=== PATIENT | male | born 1975 | race Caucasian/White ===

== ENCOUNTER 2020-01-14 07:28 | Emergency (ER) | payer OTHER ==
[2020-01-14 08:12] LABS: ABSOLUTE BASOPHILS # (AUTO) 0.1 10^3/uL (0.0-0.2); ABSOLUTE EOSINOPHILS # (AUTO) 0.2 10^3/uL (0.0-0.6); ABSOLUTE LYMPHOCYTES (AUTO) 3.5 10^3/uL (0.5-4.7); ABSOLUTE MONOCYTES (AUTO) 0.7 10^3/uL (0.1-1.4); ABSOLUTE NEUT (AUTO) 3.6 10^3/uL (1.7-8.2); BASOPHILS % (AUTO) 0.7 % (0-2); EOSINOPHILS % (AUTO) 2.1 % (0-6); HEMOGLOBIN 16.7 g/dL (13.5-17.0); LYMPHOCYTES % (AUTO) 43.9 % (13-45); MEAN CORPUSCULAR HGB CONC 34.7 g/dL (32.0-36.0); MEAN CORPUSCULAR VOLUME 90 fl (80-97); MONOCYTES % (AUTO) 8.4 % (3-13); PLATELET COUNT 163 10^3/uL (150-450); RED BLOOD COUNT 5.36 10^6/uL (4.35-5.55); SEGMENTED NEUTROPHILS % (AUTO) 44.9 % (42-78); TOTAL CELLS COUNTED % (AUTO) 100 %; WHITE BLOOD COUNT 7.9 10^3/uL (4.0-10.5)
--- NOTE | 2020-01-14 08:27 | RADIOLOGY REPORT (SQ) ---
EXAM DESCRIPTION: CHEST SINGLE VIEW IMAGES COMPLETED DATE/TIME: 01/14/2020 7:54 am REASON FOR STUDY: palpitations COMPARISON: None. EXAM PARAMETERS: NUMBER OF VIEWS: One view. TECHNIQUE: Single frontal radiographic view of the chest acquired. RADIATION DOSE: NA LIMITATIONS: None. FINDINGS: LUNGS AND PLEURA: No opacities, masses or pneumothorax. No pleural effusion. MEDIASTINUM AND HILAR STRUCTURES: No masses. Contour normal. HEART AND VASCULAR STRUCTURES: Heart normal in size. Normal vasculature. BONES: No acute findings. HARDWARE: None in the chest. OTHER: No other significant finding. IMPRESSION: NO ACUTE RADIOGRAPHIC FINDING IN THE CHEST. TECHNICAL DOCUMENTATION: JOB ID: [id number] 2010 [employer]- All Rights Reserved Reading location - IP/workstation name: [email or web address]
[2020-01-14 08:34] LABS: ALBUMIN 4.7 g/dL (3.5-5.0); ALKALINE PHOSPHATASE 57 U/L (38-126); ANION GAP 11 (5-19); ASPARTATE AMINO TRANSFERASE 28 U/L (17-59); BILIRUBIN,DIRECT 0.1 mg/dL (0.0-0.4); BILIRUBIN,TOTAL 0.6 mg/dL (0.2-1.3); BLOOD UREA NITROGEN 13 mg/dL (7-20); CALCIUM 9.5 mg/dL (8.4-10.2); CARBON DIOXIDE 23 mmol/L (22-30); CHLORIDE 106 mmol/L (98-107); CREATINE KINASE 103 U/L (55-170); GLUCOSE 123 mg/dL (75-110); POTASSIUM 4.9 mmol/L (3.6-5.0); TOTAL PROTEIN 7.5 g/dL (6.3-8.2)
[2020-01-14 08:46] LABS: CREATINE KINASE MB 0.38 ng/mL (<4.55)
[2020-01-14 08:50] LABS: TROPONIN I < 0.012 ng/mL
[2020-01-14] MEDS ORDERED: ASPIRIN 81 MG TABLET, CHEWABLE PO ONE (09:19)
--- NOTE | 2020-01-14 09:30 | EKG REPORT ---
SEVERITY:- NORMAL ECG - SINUS RHYTHM : Confirmed by: Odin Hawkins MD 14-Jan-2020 09:30:23
[2020-01-14 10:08] VITALS: BP 129/76
--- NOTE | 2020-01-14 12:09 | ER Document Report ---
ED General - General Chief Complaint: Chest Pain Stated Complaint: CHEST PAIN/PALPITATIONS Time Seen by Provider: 01/14/20 08:10 Primary Care Provider: DAMION NOGUERA [Primary Care Provider] - Follow up as needed - HPI Notes: Surgeon's note patient is a 44-year-old male presents emergency department for evaluation of chest pain. Over the last week he states he has had palpitations. He states he really notices it more at rest. He states it almost feels constant. Yesterday morning he woke up with chest pain. He states it may radiate into his left shoulder, but he is unsure because he has chronic neck and shoulder pain as well. He states that the pain is worsened by movement. It does not seem to be worsened in any way by exertion. He denies any associated nausea, diaphoresis, shortness of breath, near syncope. He really states he has not had any pain like this in the past. He does not follow with a primary care provider. - Related Data Allergies/Adverse Reactions: No Known Allergies Allergy (Verified 01/14/20 10:11) Past Medical History - General Information source: Patient - Social History Smoking Status: Current Every Day Smoker Family History: CAD - Premature coronary artery disease in both parents - Past Medical History Cardiac Medical History: Denies: Hx Congestive Heart Failure, Hx Coronary Artery Disease Pulmonary Medical History: Denies: Hx Asthma, Hx COPD Neurological Medical History: Denies: Hx Cerebrovascular Accident, Hx Seizures Endocrine Medical History: Denies: Hx Diabetes Mellitus Type 1, Hx Diabetes Mellitus Type 2, Hx Hypothyroidism GI Medical History: Denies: Hx Crohn's Disease, Hx Ulcer, Hx Ulcerative Colitis Review of Systems - Review of Systems Constitutional: No symptoms reported EENT: No symptoms reported Cardiovascular: See HPI Respiratory: No symptoms reported Gastrointestinal: No symptoms reported Genitourinary: No symptoms reported Musculoskeletal: See HPI Skin: No symptoms reported Neurological/Psychological: No symptoms reported Physical Exam - Vital signs Vitals: Temp Pulse Resp BP Pulse Ox 98.1 F 79 16 139/98 H 97 01/14/20 07:36 01/14/20 07:36 01/14/20 07:36 01/14/20 07:36 01/14/20 07:36 - Notes Notes: Vital signs reviewed, please refer to chart. Head is normocephalic, atraumatic. Pupils equal round, reactive to light. Neck is supple without meningismus. Heart is regular rate and rhythm. Lungs are clear to auscultation bilaterally. Chest wall excursion is equal bilaterally. Examination of the chest wall yields no obvious abnormality. Patient is tender to palpation over the anterior left- sided pectoralis. He has tenderness to the left trapezius as well. Neurovascularly intact left upper extremity. Abdomen is soft, nontender, normoactive bowel sounds throughout. Extremities without cyanosis, clubbing. Posterior calves are nontender. Peripheral pulses are equal. Skin is warm and dry. Patient is awake, alert, neurological exam is nonfocal. Course - Re-evaluation Re-evalutation: 01/14/20 12:06 Patient presents emergency department for evaluation. His pain seems to be more musculoskeletal in nature. Is not brought about by exertion. However, the patient is hypertensive, does have significant risk factors. EKG, laboratory investigations were ordered, including serial troponins. Serial troponins were undetectable. EKG is unremarkable. I tried to the patient at length. He voiced understanding to his risk factors and the need for modification. We also talked about his caffeine consumption. Patient admits to drinking an excessive amount of caffeine, he was told to cut this down significantly to help with his blood pressure as well as his palpitations and anxiety. Otherwise, I did discuss this case with Dr. Nica Russo, on-call yarn spooler. He agrees that the patient has multiple risk factors and will follow up in the office. Patient is agreeable to this. He is to return to the ED with worsening new concerning symptoms of any sort. - Vital Signs Vital signs: Temp Pulse Resp BP Pulse Ox 98.1 F 79 15 129/76 H 96 01/14/20 07:36 01/14/20 07:36 01/14/20 10:01 01/14/20 10:01 01/14/20 10:01 - Laboratory Result Diagrams: 01/14/20 07:56 01/14/20 07:56 Laboratory results interpreted by me: 01/14/20 07:56 Glucose 123 H - Diagnostic Test Radiology reviewed: Reports reviewed Radiology results interpreted by me: 01/14/20 12:07 Chest X-Ray 01/14/20 07:42 IMPRESSION: NO ACUTE RADIOGRAPHIC FINDING IN THE CHEST. - EKG Interpretation by Me Additional EKG results interpreted by me: 01/14/20 12:07 Sinus mechanism with rate of 78 bpm. Normal axis intervals. No acute ST changes concerning for ischemia or infarction. No old studies available for comparison. Discharge - Discharge Clinical Impression: Palpitations Chest pain Qualifiers: Chest pain type: unspecified Qualified Code(s): R07.9 - Chest pain, unspecified Condition: Stable Disposition: HOME, SELF-CARE Instructions: Chest Pain of Unclear Cause ([facility]), Chest Wall Pain ([facility]), Palpitations (Irregular or Rapid Heartrate) ([facility]) Additional Instructions: Please decrease caffeine consumption as discussed. Follow-up with our on-call yarn spooler, number listed below. You should have further evaluation of this chest pain and modification of your risk factors. Otherwise, return to the emergency department with worsening or new concerning symptoms of any sort. Referrals: DAMION NOGUERA [Primary Care Provider] - Follow up as needed NICA RUSSO MD [ACTIVE STAFF] - Follow up as needed
== END 2020-01-14 12:22 | disposition home or self-care (01) ==
LOC: ER 07:28
DX: R07.9 Chest pain, unspecified (principal); R00.2 Palpitations; F17.200 Nicotine dependence, unspecified, uncomplicated
CPT/HCPCS: 36415; 71045; 80053; 82550; 82553; 84484; 85025; 93005; 93010; 99285